=== PATIENT | male | born 1990 | race African-American/Black ===

== ENCOUNTER 2021-09-30 15:01 | Emergency (ER) | payer OTHER, SELFPAY ==
[2021-09-30 15:12] VITALS: BP 145/85; PULSE 92; RESP 16; TEMP 35.7; O2SAT 100
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
[2021-09-30] MEDS: TETANUS,DIPHTHERIA,AC PERTUSSIS ADULT (0.5 ML) BOOSTRIX IM (15:18)
== END 2021-09-30 15:35 | disposition home or self-care (01) ==
PROVIDERS: Emergency Provider Nurse Practitioner Family; PCP Internal Medicine
DX: S41.152A Open bite of left upper arm, initial encounter (principal); Z23 Encounter for immunization; Y04.1XXA Assault by human bite, initial encounter
CPT/HCPCS: 90471; 90715; 99213; G0463